=== PATIENT | female | born 1940 | race Caucasian/White ===

== ENCOUNTER 2017-04-18 05:11 | Outpatient (CLI) | payer MEDICARE, MEDICAID | END 2017-04-18 23:59 | disposition home or self-care (01) | LOC: DIABETIC 05:11 | PROVIDERS: ATTEND Specialist | DX: E11.65 Type 2 diabetes mellitus with hyperglycemia (principal) | CPT/HCPCS: G0108 ==

== ENCOUNTER 2017-06-10 05:03 | Outpatient (CLI) | payer MEDICARE, MEDICAID | END 2017-06-10 23:59 | disposition home or self-care (01) | LOC: DIABETIC 05:03 | PROVIDERS: ATTEND Specialist | DX: E11.9 Type 2 diabetes mellitus without complications (principal) | CPT/HCPCS: G0108 ==

== ENCOUNTER → 2017-09-12 | Outpatient (CLI) | payer MEDICARE, MEDICAID | LOC: DIABETIC 02:35 | PROVIDERS: ATTEND Specialist | DX: E11.65 Type 2 diabetes mellitus with hyperglycemia (principal) | CPT/HCPCS: G0108 ==

== ENCOUNTER 2017-12-08 02:11 | Outpatient (CLI) | payer MEDICARE, MEDICAID | END 2017-12-08 23:59 | disposition home or self-care (01) | LOC: DIABETIC 02:11 | PROVIDERS: ATTEND Specialist | DX: E11.65 Type 2 diabetes mellitus with hyperglycemia (principal); Z79.84 Long term (current) use of oral hypoglycemic drugs; Z79.4 Long term (current) use of insulin | CPT/HCPCS: G0108 ==

== ENCOUNTER 2018-03-23 02:12 | Outpatient (CLI) | payer MEDICARE, MEDICAID | END 2018-03-23 23:59 | disposition home or self-care (01) | LOC: DIABETIC 02:12 | PROVIDERS: ATTEND Specialist | DX: E11.65 Type 2 diabetes mellitus with hyperglycemia (principal); Z79.84 Long term (current) use of oral hypoglycemic drugs; Z79.4 Long term (current) use of insulin | CPT/HCPCS: G0108 ==

== ENCOUNTER 2018-06-30 03:24 | Outpatient (CLI) | payer MEDICARE, MEDICAID | END 2018-06-30 23:59 | disposition home or self-care (01) | LOC: DIABETIC 03:24 | PROVIDERS: ATTEND Specialist | DX: E11.9 Type 2 diabetes mellitus without complications (principal); Z71.3 Dietary counseling and surveillance | CPT/HCPCS: G0108 ==

== ENCOUNTER 2018-10-02 02:22 | Outpatient (CLI) | payer MEDICARE, MEDICAID | END 2018-10-02 23:59 | disposition home or self-care (01) | LOC: DIABETIC 02:22 | PROVIDERS: ATTEND Specialist | DX: E11.69 Type 2 diabetes mellitus with other specified complication (principal) | CPT/HCPCS: G0108 ==

== ENCOUNTER 2019-01-15 04:04 | Outpatient (CLI) | payer MEDICARE, MEDICAID | END 2019-01-15 23:59 | disposition home or self-care (01) | LOC: DIABETIC 04:04 | PROVIDERS: ATTEND Specialist | DX: E11.65 Type 2 diabetes mellitus with hyperglycemia (principal); Z79.4 Long term (current) use of insulin; Z79.84 Long term (current) use of oral hypoglycemic drugs; Z79.899 Other long term (current) drug therapy | CPT/HCPCS: G0108 ==

== ENCOUNTER 2019-04-17 00:21 | Outpatient (CLI) | payer MEDICARE, MEDICAID | END 2019-04-17 23:59 | disposition home or self-care (01) | LOC: DIABETIC 00:21 | PROVIDERS: ATTEND Specialist | DX: E11.65 Type 2 diabetes mellitus with hyperglycemia (principal) | CPT/HCPCS: G0108 ==

== ENCOUNTER 2023-09-27 11:03 | Day surgery (SDC) | payer MEDICARE, MEDICAID ==
[2023-09-26 12:29] LABS: BASOPHILS # (AUTO) 0.1 X10'3 (0-0.2); BASOPHILS % (AUTO) 1.2 % (0-1); EOSINOPHILS # (AUTO) 0.3 X10'3 (0-0.9); EOSINOPHILS % (AUTO) 5.3 % (0-6); HEMATOCRIT 36.6 % (35.0-45.0); HEMOGLOBIN 12.1 g/dl (12.0-16.0); LYMPHOCYTES % (AUTO) 31.3 % (21-51); MEAN CORPUSCULAR HEMOGLOBIN 28.8 PG (27.0-31.0); MEAN PLATELET VOLUME 8.5 FL (7.4-10.4); MONOCYTES # (AUTO) 0.7 X10'3 (0-0.9); MONOCYTES % (AUTO) 10.5 % (2-12); NEUTROPHILS # (AUTO) 3.3 X10'3 (1.8-7.7); NEUTROPHILS % (AUTO) 51.7 % (42-75); PLATELET COUNT 228 X10'3 (140-440); RED BLOOD COUNT 4.21 X10'6 (4.20-5.60); RED CELL DISTRIBUTION WIDTH 15.7 % (11.5-14.5); WHITE BLOOD COUNT 6.4 X10'3 (4.5-11.0)
[2023-09-26 12:37] LABS: APTT 26 SECONDS (22-32); INR 1.1 INR; PROTHROMBIN TIME 11.1 SECONDS (9.0-12.0)
[2023-09-26 12:41] LABS: ALANINE AMINOTRANSFERASE 30 U/L (12-78); ALBUMIN 3.5 G/DL (3.4-5.0); ALKALINE PHOSPHATASE 46 IU/L (46-116); ANION GAP 7 (8-16); ASPARTATE AMINO TRANSFERASE 21 U/L (10-37); BILIRUBIN,TOTAL 0.6 MG/DL (0.1-1.0); BLOOD UREA NITROGEN 23 MG/DL (7-18); BUN/CREATININE RATIO 27.4 (10.0-20.0); CALCIUM 9.8 MG/DL (8.5-10.1); CHLORIDE 101 MMOL/L (99-107); CHOLESTEROL 124 MG/DL (0-200); CREATININE 0.84 MG/DL (0.40-0.90); GLUCOSE 127 MG/DL (70-104); HDL CHOLESTEROL 63 MG/DL (35-60); LDL CHOLESTEROL 55 MG/DL (50-100); POTASSIUM 4.1 MMOL/L (3.5-5.1); SODIUM 137 MMOL/L (135-145); TOTAL CARBON DIOXIDE 29.2 MMOL/L (24-32); TRIGLYCERIDES 37 MG/DL (20-135); eGFR 65 ML/MIN
[~2023-09-27] VITALS: Ht 160 cm; Wt 62.3 kg
[2023-09-27] VITALS (9 sets, daily range): BP systolic 137–157; BP diastolic 61–76; PULSE 59–77; RESP 16; TEMP 97.9; O2SAT 86–96
[2023-09-27] MEDS ORDERED: DABI75CA3 PO (12:18)
[2023-09-27] MEDS ORDERED: LOSA25TA41 PO (12:36)
[2023-09-27] MEDS ORDERED: INSU100I31 SQ (12:36)
[2023-09-27] MEDS ORDERED: SEMA1PEN3 SQ (12:36)
[2023-09-27] MEDS ORDERED: AMLO5TAB16 PO (12:36)
[2023-09-27] MEDS ORDERED: METF-900 PO (12:37)
[2023-09-27] MEDS ORDERED: EVEN500C4 PO (12:37)
[2023-09-27] MEDS ORDERED: HYDR12.55 PO (12:37)
[2023-09-27] MEDS ORDERED: NITR0.4T51 SL (12:37)
[2023-09-27] MEDS ORDERED: HYDR-3965 PO (12:37)
[2023-09-27] MEDS ORDERED: ATOR-2 PO (12:37)
[2023-09-27] MEDS ORDERED: NOVLG SQ (12:37)
[2023-09-27] MEDS ORDERED: MULT-1085 PO (12:37)
[2023-09-27] MEDS ORDERED: FOLI0.4T14 PO (12:37)
[2023-09-27] MEDS ORDERED: UBID100C45 PO (12:37)
[2023-09-27] MEDS ORDERED: METO50TA16 PO (12:37)
[2023-09-27] MEDS ORDERED: OMEG1CAP91 PO (12:37)
[2023-09-27] MEDS ORDERED: LEVO50TA PO (12:37)
[2023-09-27] MEDS ORDERED: Tumeric (12:37)
[2023-09-27] MEDS ORDERED: MAGN125C PO (12:37)
[2023-09-27] MEDS: LORazepam 0.5 MG tablet PO PRN (13:13)
[2023-09-27] MEDS: diphenhydrAMINE 25mg capsule PO PRN (13:13)
[2023-09-27] MEDS: normal saline 1,000 ML IV SCH (13:14)
[2023-09-27] MEDS ORDERED: iohexol 350MG/ML 100ml bottle IV ONE ×2 (14:03→15:19)
[2023-09-27] MEDS ORDERED: midazolam 1 mg/ML 2ml injection ONE (14:03)
[2023-09-27] MEDS ORDERED: fentaNYL/PF 50MCG/1 ML 2ML syringe ONE (14:03)
[2023-09-27] MEDS ORDERED: LIDOcaine 1% 30ml preserv. free vial ONE (14:03)
[2023-09-27] MEDS ORDERED: iohexol 350 MG/ML 50ML vial IV ONE (15:24)
== END 2023-09-27 19:25 | disposition home or self-care (01) ==
LOC: SSTAY O 11:03
PROVIDERS: ATTEND Student in an Organized Health Care Education/Training Program
DX: I25.10 Atherosclerotic heart disease of native coronary artery without angina pectoris (principal); I44.7 Left bundle-branch block, unspecified; I10 Essential (primary) hypertension; E11.51 Type 2 diabetes mellitus with diabetic peripheral angiopathy without gangrene; E78.00 Pure hypercholesterolemia, unspecified; I48.91 Unspecified atrial fibrillation; Z86.73 Personal history of transient ischemic attack (TIA), and cerebral infarction without residual deficits; Z79.01 Long term (current) use of anticoagulants; Z79.84 Long term (current) use of oral hypoglycemic drugs; Z79.890 Hormone replacement therapy; Z79.899 Other long term (current) drug therapy; Z95.1 Presence of aortocoronary bypass graft; Z88.5 Allergy status to narcotic agent; Z88.6 Allergy status to analgesic agent; Z91.030 Bee allergy status; Z88.8 Allergy status to other drugs, medicaments and biological substances
CPT/HCPCS: 36415; 80053; 80061; 82948; 85025; 85610; 85730; 93005; 93459; 93567; 99152; 99153; A4615; A6258; A6402; C1725; J1644; J2001; J2250; J3010; J7030; Q0163; Q9967; Z7610; J3490